=== PATIENT | female | born 1955 | race Caucasian/White ===

== ENCOUNTER 2017-06-13 02:07 | Emergency (ER) | payer SELFPAY ==
[~2017-06-13] VITALS: Ht 162.6 cm; Wt 113.4 kg
[~2017-06-13 02:07] MED LIST: ATOR20TA PO; METO-356 PO; METO25TA6 PO
[2017-06-13] MEDS ORDERED: DEXAMETHASONE SOD PHOSPHATE 10 MG/ML VIAL ONE (02:23)
[2017-06-13] MEDS ORDERED: ALBUTEROL FS 2.5 MG/3 ML VIAL.NEB ONE (02:24)
--- NOTE | 2017-06-13 02:27 | NUR ---
PT IS ON A BREATHING TX. PT REC'D MEDICATION ORDERED.
[2017-06-13] MEDS ORDERED: ALBUTEROL FS 2.5 MG/0.5 ML VIAL.NEB NEB ONE (02:30)
[2017-06-13] MEDS ORDERED: DEXAMETHASONE SOD PHOSPHATE 4 MG/ML VIAL IM ONE (02:30)
--- NOTE | 2017-06-13 02:38 | NUR ---
BREATHING TX FINISHED.
--- NOTE | 2017-06-13 02:45 | NUR ---
PT IS SATURATING AT 95-96% ON RA. PT IS STILL SLIGHTLY TIGHT, BUT IS MOVING AIR. PT STATED THAT SHE FEELS MUCH BETTER AND FEELS SHE CAN GO HOME. DR. GAYTAN NOTIFIED. Patient discharged to home in stable condition. Written and verbal after care instructions given. Patient verbalizes understanding of instruction AND RX. PT AMBULATED OUT WITH A STEADY GAIT. VSS.
[2017-06-13 02:47] VITALS: BP 128/88
== END 2017-06-13 02:45 | disposition home or self-care (01) ==
LOC: ER 02:09
DX: J98.01 Acute bronchospasm (principal); I10 Essential (primary) hypertension; J45.909 Unspecified asthma, uncomplicated
CPT/HCPCS: 94640; 96372; 99283; A4606 ×2; J1100; Z7610 ×2